=== PATIENT | female | born 1990 | race Caucasian/White ===

== ENCOUNTER → 2023-12-10 07:07 | Outpatient (REF) | payer OTHER, SELFPAY | LOC: PNTC 07:07 | PROVIDERS: ATTENDING PHYSICIAN Nurse Practitioner Women's Health | DX: Z36.0 Encounter for antenatal screening for chromosomal anomalies (principal) | CPT/HCPCS: 76805 ==

== ENCOUNTER → 2024-02-05 07:44 | Outpatient (REF) | payer OTHER, SELFPAY | LOC: PNTC 07:44 | PROVIDERS: ATTENDING PHYSICIAN Obstetrics & Gynecology | DX: Z34.90 Encounter for supervision of normal pregnancy, unspecified, unspecified trimester (principal) | CPT/HCPCS: 36415; 86850; 86900; 86901; J2790 ==

== ENCOUNTER 2024-04-28 19:41 | Inpatient (IN) | payer OTHER, SELFPAY ==
[2024-04-28 19:52] VITALS: BP 117/80; BMI 29.3
[2024-04-28 20:06] LABS: % Basophils 0.3 % (0-2); % Eosinophils 0.7 % (0-6); % Immature Granulocytes 0.3 % (0-0.5); % Lymphocytes 19.1 % (20.5-51.1); % Monocytes 8.9 % (1.7-9.3); % Neutrophils 70.7 % (42.2-75.2); Absolute Eosinophils 0.1 10^3/uL (0-0.7); Absolute Lymphocytes 1.9 10^3/uL (1.2-3.4); Absolute Monocytes 0.9 10^3/uL (0.1-0.6); Absolute Neutrophils 7.1 10^3/uL (1.4-6.5); Hemoglobin 9.7 g/dL (12.0-16.0); Mean Corp Hgb Conc. 32.3 g/dL (33.0-37.0); Mean Corpuscular Hgb 24.3 pg (27.0-31.0); Mean Platelet Volume 11.5 fL (7.4-10.4); Nucleated Red Blood Cells % 0 %; Platelet Count 269 10^3/uL (130-400); Red Cell Dist. Width 15.3 % (11.5-14.5)
[2024-04-28] MEDS: CYTOTEC 25 MICROGRAM VAG (20:37)
[2024-04-28] MEDS: LR 1000 IV (20:43)
[2024-04-29] MEDS: CYTOTEC PO ×3 (02:18→12:32)
[2024-04-29] MEDS: CYTOTEC 50 MICROGRAM PO (05:19)
[2024-04-29] MEDS: PITOCIN 30 UNITS/NSS 500 ML IV (08:40)
[2024-04-29] MEDS: LR 1000 IV ×2 (08:46→09:53)
[2024-04-29] MEDS: SUBLIMAZE 100 MCG EPIDURAL (09:39)
[2024-04-29] MEDS: FENTANYL/BUPIVACAINE 100 EPIDURAL ×2 (09:39→16:52)
[2024-04-29] MEDS: ANCEF 10 IV (23:51)
[2024-04-29] MEDS: BICITRA 30 ML PO (23:51)
[2024-04-29] MEDS: TYLENOL 1000 MG PO (23:51)
[2024-04-30] MEDS: ZITHROMAX INFUSION 250 IV
[2024-04-30] MEDS: CYTOTEC PO ×2 (01:16)
[2024-04-30] MEDS: ZOFRAN 4 MG IV (01:50)
[2024-04-30] MEDS: MORPHINE SULFATE 4 MG IV (01:51)
[2024-04-30] MEDS: TORADOL 15 MG IV ×3 (06:23→18:30)
--- NOTE | 2024-04-30 07:34 | W.PN.ANS.POP ---
Anesthesia Post Operative
- Anesthesia Post Op Note
Vital Signs Stable-See Nursing Note: Yes
Airway Patent: Yes
Adequate Pain Control: No
Change in Mental Status: No
Current Postoperative Nausea & Vomiting: No
Anesthesia Complications: No
General Anesthetic Recall: No
Unplanned Admission: No
Post Op Hydration Adequate: Yes
[2024-04-30] MEDS: PRENATAL PLUS 1 TABLET PO (13:03)
[2024-05-01] MEDS: TORADOL 15 MG IV (00:27)
[2024-05-01 06:00] LABS: Platelet Count 197 10^3/uL (130-400)
[2024-05-01 06:01] LABS: Hematocrit 23.7 % (37.0-47.0); Hemoglobin 7.7 g/dL (12.0-16.0); Mean Corp Hgb Conc. 32.5 g/dL (33.0-37.0); Mean Corpuscular Hgb 24.4 pg (27.0-31.0); Mean Corpuscular Volume 75.2 fL (81.0-99.0); Mean Platelet Volume 11.2 fL (7.4-10.4); Red Blood Cell Count 3.15 10^6/uL (4.20-5.40); Red Cell Dist. Width 15.4 % (11.5-14.5); White Blood Cell Count 14.8 10^3/uL (4.8-10.8)
[2024-05-01] MEDS: PRENATAL PLUS 1 TABLET PO (08:16)
[2024-05-01] MEDS: FEOSOL 325 MG PO ×2 (08:16→20:31)
[2024-05-01] MEDS: SENOKOT-S 1 TABLET PO (08:16)
[2024-05-01] MEDS: MOTRIN 600 MG PO ×3 (08:37→22:40)
[2024-05-01] MEDS: MYLICON 80 MG PO (20:50)
--- NOTE | 2024-05-02 08:16 | W.DS.TRANS ---
DC Summary - [employer]
-
Discharge Instructions:
Discharge Diagnosis/Procedures Section
Instructions:
Stand-Alone Forms: LDRP Delivery
Changes to Home Medications: No
Discharge Medications:
DC Medications w/original date entered in [employer]
prenat.vits,camryn,gjy-qydk-rwetv 1 tab PO DAILY Supplement 04/28/24
ferrous sulfate 325 mg (65 mg iron) tablet (FeroSul) 325 mg PO BID #0 tabs 05/02/24
ibuprofen 600 mg tablet 600 mg PO Q6HPRN PRN cramps #45 tabs 05/02/24
sennosides 8.6 mg-docusate sodium 50 mg tablet 1 tab PO DAILYPRN PRN constipation #0 tabs 05/02/24
Home Medication Changes
Pending Results: No
[2024-05-02] MEDS: FEOSOL 325 MG PO (08:41)
[2024-05-02] MEDS: PRENATAL PLUS 1 TABLET PO (08:42)
[2024-05-02] MEDS: SENOKOT-S 1 TABLET PO (08:42)
[2024-05-04 18:41] LABS: Syphilis/T. pallidum Ab Reflex Negative (Negative)
== END 2024-05-02 12:05 | disposition home or self-care (01) | DRG 787 ==
LOC: LDRP 19:41
PROVIDERS: Obstetrics & Gynecology; ADMITTING PHYSICIAN Obstetrics & Gynecology
PROC: 3E0P7VZ Introduction of Hormone into Female Reproductive, Via Natural or Artificial Opening (ICD-10-PCS; 2024-04-28)
PROC: 10907ZC Drainage of Amniotic Fluid, Therapeutic from Products of Conception, Via Natural or Artificial Opening (ICD-10-PCS; 2024-04-29)
PROC: 10D00Z1 Extraction of Products of Conception, Low, Open Approach (ICD-10-PCS; 2024-04-30)
DX: O48.0 Post-term pregnancy (principal); O98.32 Other infections with a predominantly sexual mode of transmission complicating childbirth; Z3A.40 40 weeks gestation of pregnancy; Z37.0 Single live birth; O77.0 Labor and delivery complicated by meconium in amniotic fluid; A63.0 Anogenital (venereal) warts; Z98.82 Breast implant status; Z28.310 Unvaccinated for COVID-19; O90.81 Anemia of the puerperium; D64.9 Anemia, unspecified; O62.1 Secondary uterine inertia
CPT/HCPCS: 88307; 85025; 85027; 86780; 86850; 86870; 86900; 86901

== ENCOUNTER → 2025-04-11 13:49 | Outpatient (REF) | payer OTHER, SELFPAY | LOC: PNTC 13:49 | PROVIDERS: ATTENDING PHYSICIAN Obstetrics & Gynecology | DX: Z34.90 Encounter for supervision of normal pregnancy, unspecified, unspecified trimester (principal) | CPT/HCPCS: 36415; 86850; 86900; 86901; 96372; J2790 ==

== ENCOUNTER 2025-06-29 05:39 | Inpatient (IN) | payer OTHER, SELFPAY ==
[2025-06-29 05:47] VITALS: BMI 27.5
[2025-06-29 05:52] VITALS: BP 105/65
[2025-06-29] MEDS: LR 1000 IV (06:10)
[2025-06-29 06:37] LABS: Hematocrit 31.6 % (37.0-47.0); Hemoglobin 10.1 g/dL (12.0-16.0); Mean Corp Hgb Conc. 32.0 g/dL (33.0-37.0); Mean Corpuscular Volume 78.6 fL (81.0-99.0); Platelet Count 184 10^3/uL (130-400); Red Cell Dist. Width 20.7 % (11.5-14.5)
[2025-06-29] MEDS: ANCEF 10 IV (07:09)
[2025-06-29] MEDS: BICITRA 30 ML PO (07:09)
[2025-06-29] MEDS: TYLENOL 975 MG PO (07:09)
[2025-06-29] MEDS: TORADOL 15 MG IV ×3 (08:32→20:48)
[2025-06-29] MEDS: COLACE LIQUID 100 MG S (20:08)
[2025-06-29] MEDS: FLUSH (NSS) 3 FLUSH IV (20:49)
[2025-06-30] MEDS: MYLICON 80 MG PO ×3 (00:20→21:43)
[2025-06-30] MEDS: TORADOL 15 MG IV ×2 (02:52→08:50)
[2025-06-30] MEDS: FLUSH (NSS) 3 FLUSH IV (02:53)
[2025-06-30 03:39] LABS: Hematocrit 27.4 % (37.0-47.0); Hemoglobin 8.8 g/dL (12.0-16.0); Mean Corp Hgb Conc. 32.1 g/dL (33.0-37.0); Mean Corpuscular Volume 78.7 fL (81.0-99.0); Platelet Count 168 10^3/uL (130-400); Red Cell Dist. Width 20.7 % (11.5-14.5)
--- NOTE | 2025-06-30 07:38 | W.PN.ANS.POP ---
Anesthesia Post Operative
- Anesthesia Post Op Note
Vital Signs Stable-See Nursing Note: Yes
Airway Patent: Yes
Adequate Pain Control: Yes
Change in Mental Status: No
Current Postoperative Nausea & Vomiting: No
Anesthesia Complications: No
General Anesthetic Recall: No
Unplanned Admission: No
Post Op Hydration Adequate: Yes
[2025-06-30] MEDS: COLACE LIQUID 100 MG S ×2 (08:50→20:09)
[2025-06-30] MEDS: RHOGAM 300 MCG IM (12:07)
[2025-06-30] MEDS: TYLENOL 650 MG PO ×2 (15:38→21:43)
[2025-06-30] MEDS: MOTRIN 600 MG S (15:39)
[2025-06-30] MEDS: MOTRIN 600 MG PO (22:08)
[2025-07-01] MEDS: MOTRIN 600 MG PO ×2 (04:42→09:11)
[2025-07-01] MEDS: TYLENOL 650 MG PO ×2 (04:43→09:11)
[2025-07-01] MEDS: MYLICON 80 MG PO (04:43)
[2025-07-01] MEDS: COLACE LIQUID 100 MG S (08:25)
[2025-07-01] MEDS: FEOSOL 325 MG PO (08:26)
--- NOTE | 2025-07-01 09:22 | W.DS.TRANS ---
DC Summary - Health Professional
-
Discharge Instructions:
Discharge Diagnosis/Procedures 39.5wks; close interval ;
prior csection; repeat LTCS
Diet No restrictions
Activity No strenuous activity
Driving Restrictions No driving for 2 weeks
Bathing Restrictions OK to Shower
Instructions:
Stand-Alone Forms: LDRP Delivery
Changes to Home Medications: No
Discharge Medications:
DC Medications w/original date entered in [employer]
acetaminophen 325 mg tablet 650 mg (2 x 325 mg) PO Q4HPRN PRN mild pain #0 tabs 07/01/25
docusate sodium 50 mg/5 mL oral liquid 100 mg (10 mL) S BID #0 mL 07/01/25
ferrous sulfate 325 mg (65 mg iron) tablet (FeroSul) 325 mg PO DAILY #0 tabs 07/01/25
ibuprofen 100 mg/5 mL oral suspension (Children's Ibuprofen) 600 mg (30 mL) PO Q6HPRN PRN pain #0 mL 07/01/25
simethicone 80 mg chewable tablet 80 mg PO TIDPRN PRN flatulence #0 tabs 07/01/25
Home Medication Changes
Pending Results: No
Total time spent discharging patient (in min): 20
[2025-07-01 13:50] LABS: Syphilis/T. pallidum Ab Reflex Negative (Negative)
== END 2025-07-01 12:19 | disposition home or self-care (01) | DRG 788 ==
LOC: LDRP 05:39
PROVIDERS: Obstetrics & Gynecology; ADMITTING PHYSICIAN Obstetrics & Gynecology
PROC: 6A550ZT Pheresis of Cord Blood Stem Cells, Single (ICD-10-PCS; 2025-06-29)
PROC: 10D00Z1 Extraction of Products of Conception, Low, Open Approach (ICD-10-PCS; 2025-06-29)
PROC: 0HB7XZZ Excision of Abdomen Skin, External Approach (ICD-10-PCS; 2025-06-29)
PROC: 3E0234Z Introduction of Serum, Toxoid and Vaccine into Muscle, Percutaneous Approach (ICD-10-PCS; 2025-06-30)
DX: O34.211 Maternal care for low transverse scar from previous cesarean delivery (principal); Z3A.39 39 weeks gestation of pregnancy; Z37.0 Single live birth; L91.0 Hypertrophic scar; O99.72 Diseases of the skin and subcutaneous tissue complicating childbirth; Z98.82 Breast implant status; Z28.310 Unvaccinated for COVID-19
CPT/HCPCS: 85027; 85461; 86780; 86850; 86870; 86900; 86901; J2790